=== PATIENT | female | born 2000 | race Asian ===

== ENCOUNTER 2020-05-25 18:05 | Emergency (ER) | payer BC ==
[2020-05-25] MEDS ORDERED: ONDANSETRON *ODT* 4 MG TABLET ONE (18:24)
[2020-05-25] MEDS ORDERED: ACETAMINOPHEN 325 MG TABLET (FP) ONE ×2 (18:24→18:29)
[2020-05-25] MEDS ORDERED: ACETAMINOPHEN 325 MG TABLET (FP) PO ONE (18:49)
[2020-05-25] MEDS ORDERED: ONDANSETRON 4 MG TABLET PO ONE (18:50)
[2020-05-25] MEDS ORDERED: MAG HYDROX/AL HYDROX/SIMETH 30 ML UNIT-DOSE CUP PO ONE (18:51)
[2020-05-25] MEDS ORDERED: FAMOTIDINE 20 MG TABLET PO ONE (18:51)
[2020-05-25] MEDS ORDERED: FAMOTIDINE 20 MG TABLET ONE (18:55)
[2020-05-25] MEDS ORDERED: MAG HYDROX/AL HYDROX/SIMETH 30 ML UNIT-DOSE CUP ONE (18:55)
[2020-05-25 19:07] VITALS: BP 126/89; PULSE 124; TEMP 100.2; BMI 22.2
[2020-05-25 19:16] LABS: THROAT:GRP A STREP ANTIGEN Negative (Negative)
[2020-05-25 19:43] LABS: EPITHELIAL CELLS FEW /hpf
== END 2020-05-25 20:21 | disposition home or self-care (01) ==
LOC: FER 18:05
DX: K52.9 Noninfective gastroenteritis and colitis, unspecified (principal); R50.9 Fever, unspecified; J02.9 Acute pharyngitis, unspecified
CPT/HCPCS: 81003; 81015; 84703; 87070; 87880; 99283-25; C9803; U0003